=== PATIENT | male | born 1955 | race Hispanic/Latino ===

== ENCOUNTER 2022-11-06 23:04 | Emergency (ER) | payer OTHER ==
[~2022-11-06] VITALS: Ht 170.2 cm; Wt 112.5 kg
[2022-11-07] MEDS ORDERED: METOCLOPRAMIDE 10 MG/2 ML VIAL IVP ONE
[2022-11-07] MEDS ORDERED: LABETALOL 20MG VIAL IV ONE
[2022-11-07] MEDS ORDERED: MORPHINE 2 MG SYG IVP ONE
[2022-11-07 00:18] LABS: HEMATOCRIT 40.8 % (42-54); LYMPHOCYTES % (AUTO) 16.1 % (21.0-51.0); MEAN CORPUSCULAR HGB CONC 32.1 g/dL (32.0-36.0); MEAN CORPUSCULAR VOLUME 77.9 fL (79-99); MONOCYTES % (AUTO) 9.1 % (3.0-13.0); NEUTROPHILS % (AUTO) 71.9 % (40.0-77.0); PLATELET COUNT (AUTO) 241 K/uL (130-400); RED BLOOD CELL COUNT(AUTO) 5.24 MIL/uL (4.50-6.20); RED CELL DISTRIBUTION WIDTH 14.3 % (11.0-15.5); WHITE BLOOD COUNT (AUTO) 8.1 K/uL (4.8-10.8)
[2022-11-07 00:19] LABS: BASOPHILS % (AUTO) 0.5 % (0.0-5.0); EOSINOPHILS % (AUTO) 1.8 % (0.0-8.0)
[2022-11-07 00:28] LABS: CREATININE 0.8 mg/dL (0.5-1.5); POTASSIUM 3.6 mmol/L (3.5-5.1)
[2022-11-07 00:29] LABS: INR 0.98 (0.85-1.15); PROTHROMBIN TIME 10.7 SEC (9.6-11.6)
[2022-11-07 00:30] LABS: PARTIAL THROMBOPLASTIN TIME 25.1 SEC (26.3-35.5)
[2022-11-07 00:32] LABS: ALBUMIN 3.7 g/dL (3.5-5.0); TOTAL PROTEIN, SERUM 7.7 g/dL (6.0-8.3)
[2022-11-07 00:38] LABS: APPEARANCE,URINE CLEAR (CLEAR); BILIRUBIN,URINE NEGATIVE (NEGATIVE); COLOR,URINE LIGHT-YELLOW (YELLOW); GLUCOSE, URINE (UA) NEGATIVE (NEGATIVE); KETONES,URINE NEGATIVE (NEGATIVE); LEUKOCYTE ESTERASE ,URINE NEGATIVE Leu/uL (NEGATIVE); NITRATE,URINE NEGATIVE (NEGATIVE); OCCULT BLOOD,URINE NEGATIVE (NEGATIVE); PROTEIN,URINE 30 mg/dL (NEGATIVE); UROBILINOGEN,URINE 0.2 mg/dL (0.2-1.0)
[2022-11-07 00:41] LABS: MUCUS,URINE RARE LPF (None Seen); RBC,URINE 0-1 /HPF (0-1); WBC,URINE 0-1 /HPF (0-1)
[2022-11-07 01:54] VITALS: BP 137/79
== END 2022-11-07 02:05 | disposition home or self-care (01) ==
LOC: EDH 23:04
DX: G44.209 Tension-type headache, unspecified, not intractable (principal); I16.0 Hypertensive urgency; I10 Essential (primary) hypertension; K21.9 Gastro-esophageal reflux disease without esophagitis; E11.9 Type 2 diabetes mellitus without complications
CPT/HCPCS: 99285; 96374; 70450; 71045; 96375; 82550; 84484; 80053; 85025; 85610; 85730; 82948; 81001; 36415; 93005; J2270; J3490; J2765

== ENCOUNTER 2022-11-09 07:53 | Observation (INO) | payer OTHER ==
[~2022-11-09] VITALS: Ht 170.2 cm; Wt 112.6 kg
[2022-11-09] MEDS ORDERED: LORAZEPAM 0.5 MG TABLET PO ONE (08:30)
[2022-11-09 08:31] LABS: BASOPHILS % (AUTO) 0.5 % (0.0-5.0); EOSINOPHILS % (AUTO) 1.4 % (0.0-8.0); HEMATOCRIT 42.8 % (42-54); LYMPHOCYTES % (AUTO) 15.5 % (21.0-51.0); MEAN CORPUSCULAR HEMOGLOBIN 25.2 pg (27.0-33.0); MEAN CORPUSCULAR VOLUME 78.7 fL (79-99); MONOCYTES % (AUTO) 9.6 % (3.0-13.0); NEUTROPHILS % (AUTO) 72.5 % (40.0-77.0); PLATELET COUNT (AUTO) 251 K/uL (130-400); RED BLOOD CELL COUNT(AUTO) 5.44 MIL/uL (4.50-6.20); RED CELL DISTRIBUTION WIDTH 14.8 % (11.0-15.5); WHITE BLOOD COUNT (AUTO) 7.9 K/uL (4.8-10.8)
[2022-11-09 08:39] LABS: CREATININE 0.9 mg/dL (0.5-1.5); POTASSIUM 4.4 mmol/L (3.5-5.1)
[2022-11-09 08:44] LABS: TOTAL PROTEIN, SERUM 8.1 g/dL (6.0-8.3)
[2022-11-09 08:55] LABS: B-TYPE NATRIURETIC PEPTIDE < 5 pg/mL (0-100)
[2022-11-09] MEDS ORDERED: ASPIRIN 325MG EC TAB PO ONE (09:30)
[2022-11-09 09:37] LABS: THYROID STIMULATING HORMONE 1.74 uIU/mL (0.36-3.74)
[2022-11-09] MEDS ORDERED: ONDANSETRON ODT 4MG TAB SL PRN (10:30)
[2022-11-09] MEDS ORDERED: BENA-8 PO (10:43)
[2022-11-09] MEDS ORDERED: BUSP5TAB3 PO (10:43)
[2022-11-09] MEDS ORDERED: METF-444 PO (10:43)
[2022-11-09] MEDS ORDERED: AMLO-257 PO (10:43)
[2022-11-09] MEDS ORDERED: ESOM40VI2 IV (10:43)
[2022-11-09] MEDS: ACETAMINOPHEN 325 MG TAB PO PRN ×2 (11:37→20:03)
[2022-11-09] MEDS ORDERED: ATORVASTATIN 40 MG TABLET PO SCH (21:00)
[2022-11-09 22:45] VITALS: BP 153/70
[2022-11-09] MEDS ORDERED: OXYM15SP NS (23:24)
[2022-11-10 03:48] LABS: HEMATOCRIT 41.5 % (42-54); MEAN CORPUSCULAR HEMOGLOBIN 25.4 pg (27.0-33.0); MEAN CORPUSCULAR HGB CONC 32.3 g/dL (32.0-36.0); MEAN CORPUSCULAR VOLUME 78.7 fL (79-99); RED BLOOD CELL COUNT(AUTO) 5.27 MIL/uL (4.50-6.20); RED CELL DISTRIBUTION WIDTH 14.7 % (11.0-15.5); WHITE BLOOD COUNT (AUTO) 9.3 K/uL (4.8-10.8)
[2022-11-10 03:57] VITALS: BP 141/80
[2022-11-10 03:57] LABS: HEMOGLOBIN A1C 8.8 % (4.0-6.0)
[2022-11-10 04:09] LABS: ALBUMIN 3.6 g/dL (3.5-5.0); CREATININE 0.7 mg/dL (0.5-1.5); MAGNESIUM 1.8 mg/dL (1.80-2.40); POTASSIUM 3.9 mmol/L (3.5-5.1); TOTAL PROTEIN, SERUM 7.7 g/dL (6.0-8.3)
[2022-11-10] MEDS: INSULIN HUMULIN R 100 UNIT/ML 3ML SQ SCH ×3 (06:50→15:57)
[2022-11-10 08:00] VITALS: BP 153/82
[2022-11-10] MEDS ORDERED: ENOXAPARIN SODIUM 30 MG/0.3 ML SQ SCH (09:00)
[2022-11-10] MEDS ORDERED: ASPIRIN 81MG CHEW TAB PO SCH (09:00)
[2022-11-10 12:00] VITALS: BP 153/92
[2022-11-10] MEDS: ACETAMINOPHEN 325 MG TAB PO PRN (14:17)
[2022-11-10 16:00] VITALS: BP 151/79
== END 2022-11-10 18:00 | disposition home or self-care (01) ==
LOC: EDH 07:53 → EDHIP 09:29 → INTOOBSV 09:29 → 3CH 22:03
PROVIDERS: ADMIT Internal Medicine Infectious Disease; ATTEND Internal Medicine Infectious Disease
DX: I10 Essential (primary) hypertension (principal); E11.9 Type 2 diabetes mellitus without complications; F41.9 Anxiety disorder, unspecified; F32.A Depression, unspecified; E66.01 Morbid (severe) obesity due to excess calories; G45.9 Transient cerebral ischemic attack, unspecified; G44.209 Tension-type headache, unspecified, not intractable; H53.129 Transient visual loss, unspecified eye; H54.61 Unqualified visual loss, right eye, normal vision left eye; H54.1131 Blindness right eye category 3, low vision left eye category 1; H54.10 Blindness, one eye, low vision other eye, unspecified eyes; Z79.899 Other long term (current) drug therapy; Z98.890 Other specified postprocedural states; Z68.38 Body mass index [BMI] 38.0-38.9, adult
CPT/HCPCS: 99285; 93306; 93880; 70551; 71045; 80061; 84443; 84484; 80053 ×2; 83880; 85025; 82948 ×4; 36415 ×2; 93005; 96372; 83036; 83735; 85027; G0378; J1650

== ENCOUNTER 2024-09-26 19:37 | Emergency (ER) | payer OTHER ==
[~2024-09-26] VITALS: Ht 170.2 cm; Wt 98.9 kg
[~2024-09-26 19:37] MED LIST: AMLO-257 PO; BENA-8 PO; BUSP5TAB3 PO; ESOM40VI2 IV; METF-444 PO; OXYM15SP NS
[2024-09-26] MEDS: ORPHENADRINE 60MG/2ML IM ONE (20:16)
[2024-09-26] MEDS: ketOROlac 15MG/ML VIAL (15MG/ML) IM ONE (20:17)
[2024-09-26] MEDS: cloNIDine HCL 0.1 MG TABLET PO ONE (20:29)
--- NOTE | 2024-09-26 20:34 | HMCIMG ---
INDICATION: pain TECHNIQUE: CHEST 1VW COMPARISON: 11/09/2022 FINDINGS AND IMPRESSION: No acute consolidation or pleural effusion. Cardiac silhouette is within normal limits. Mild degenerative changes of the spine. The visualized upper abdomen appears unremarkable.
--- NOTE | 2024-09-26 20:35 | HMCIMG ---
SHOULDER COMP 2+VWS LT INDICATION: pain TECHNIQUE: SHOULDER COMP 2+VWS LT. FINDINGS AND IMPRESSION: No displaced fracture or dislocation is seen. Correlate clinically. There is mild soft tissue swelling No radiopaque foreign body is identified.
--- NOTE | 2024-09-26 21:28 | ERN ---
General Chief Complaint: Shoulder Injury/Pain Stated Complaint: LEFT SHOULDER PAIN Time Seen by MD: 19:46 Time Seen by Midlevel: 19:46 Source: patient History of Present Illness Initial Comments The patient is a 69-year-old male with a past medical history of type 2 diabetes, hypertension, anxiety, and depression presenting to the emergency department with left shoulder pain that radiates to the left side of his neck and the left side of his back. The pain started on September 20, 2024. Patient was unsure if he slept wrong or if this is due to him mowing the lawn with a push sole sewer hand. He rates the pain four out of 10. Denies any other symptoms. He specifically denies any shortness of breath or cough. He was seen by primary care doctor and was given muscle relaxants with little to no relief. Allergies: Coded Allergies: No Known Drug Allergies (Unverified Allergy, Unknown, 11/06/22) Home Meds Reported Medications Oxymetazoline HCl (12 Hour Nasal Relief) 15 Ml Denbo, 15 ML NS BID PRN for NASAL CONGESTION, SPRAY 11/09/22 Amlodipine Besylate (Amlodipine Besylate) 5 Mg Tablet, 5 MG PO BID, TAB 11/09/22 Metformin HCl (Metformin HCl) 500 Mg Tablet, 500 MG PO DAILY, TAB 11/09/22 Benazepril HCl (Benazepril HCl) 20 Mg Tablet, 20 MG PO BID, TAB 11/09/22 Esomeprazole Sodium (Esomeprazole Sodium) 40 Mg Vial, 40 MG IV DAILY, VIAL 11/09/22 Buspirone HCl (Buspirone HCl) 5 Mg Tablet, 5 MG PO BID, TAB 11/09/22 Past Medical History Past Medical History: Anxiety, Depression, Diabetes-Type II, Hypertension Past Surgical History: Other Surgical History Other: RECTAL FISTULA Social History Social History: Negative, Lives with family ROS Dictation CONSTITUTIONAL: Negative except for HPI HEAD/FACE: Negative except for HPI EENT: Negative except for HPI RESPIRATORY: Negative except for HPI GASTROINTESTINAL/ABDOMINAL: Negative except for HPI GENITOURINARY: Negative except for HPI MUSCULOSKELETAL: Negative except for HPI INTEGUMENTARY: Negative except for HPI NEUROLOGICAL/PSYCH: Negative except for HPI HEMATOLOGIC/LYMPHATIC: Negative except for HPI All Systems Negative, Except as noted above. 13 point review of systems assessed and all negative except for above. Physical Exam Physical Exam Dictation Vital Signs reviewed General Appearance: Alert, oriented x 3, no acute distress, well developed, nourished. Head and Face: non-traumatic. Eyes: PERRL, pink conjunctivas, eyelid no trauma, anterior chamber with arcus senilis. Ears: Pinnas intact and no signs of trauma or erythema ear canals clear and no discharge TM no erythema Nose: No discharge, no bleeding. Oropharynx: Mouth normal, tongue pink, pharynx clear,no erythema, tonsils no exudates, no abscesses noted, mucous membrane moist Neck: Supple, non-tender, no thyromegaly, no masses, no JVD, no bruits Breast:Deferred Chest:No tenderness, no crepitus, no paradoxical movement, no retractions Lungs:Clear, well-ventilated, symmetric, no rales, no wheezing, no rhonchi, no stridor, good breath sounds bilaterally Heart: Regular rate, regular rhythm, no murmur, no gallops Vascular: no peripheral edema, Abdomen: Soft, positive bowel sounds, nondistended, no guarding, nontender, no rebound, no masses no hepatomegaly, no splenomegaly, no Mustafa's sign, no hernias. Rectal: Deferred Genital: Deferred Neurological: Normal speech, motor function intact, sensory function intact Musculoskeletal: Neck nontender, full range of motion, back nontender, full range of motion, Extremities: nontender, full range of motion Skin: Color pink, dry, no turgor, no rash, no lacerations, no abrasions, no contusions. Lymphatic: Deferred MDM MDM: The patient is a 69-year-old male with a past medical history of type 2 diabetes, hypertension, anxiety, and depression presenting to the emergency department with left shoulder pain that radiates to the left side of his neck and the left side of his back. The pain started on September 20, 2024. Patient was unsure if he slept wrong or if this is due to him mowing the lawn with a push sole sewer hand. He rates the pain four out of 10. Denies any other symptoms. He specifically denies any shortness of breath or cough. He was seen by primary care doctor and was given muscle relaxants with little to no relief. Initial vital signs are remarkable for an elevated blood pressure of 182/96. Heart rate is 77 beats per minute. Temperature is 98.2. On physical examination the patient was in no acute respiratory distress. He was full range motion of the left shoulder however on palpation of the left scapula the patient was reproducible pain and tenderness. It appears his pain is musculoskeletal in nature. However, an EKG was obtained which reveals normal sinus rhythm with a ventricular rate of 60 beats per minute, no ST elevations, no bundle branch blocks. Chest x-ray was obtained which reveals no acute cardiopulmonary process. His left shoulder x-ray shows no acute fracture or dislocation. On arrival his blood pressure was slightly elevated. 0.1 mg of clonidine was administered. Patient was observed for approximately 30 minutes in his blood pressure improved to 150 systolic. Patient states his pain has improved. He was an appointment with his primary care doctor tomorrow. The patient was stable for discharge with close return precautions. Differential diagnosis: Musculoskeletal pain, ACS, contusion, fracture, dislocation shoulder strain There are no social concerns with this patient. Prescription drug management Prescriptions will include: None Medical management and examination interpretation discussions were had by me with other qualified healthcare professionals as indicated for the patient's care. ED Course Orders Procedure Category Date Status Time Shoulder Comp 2+Vws Lt RAD 09/26/24 Resulted 19:52 Orphenadrine Citrate PHA 09/26/24 Complete (Norflex) 20:00 12 Lead Ekg Tracing- EKG 09/26/24 Logged Technical 19:52 Chest 1vw RAD 09/26/24 Resulted 19:52 Ketorolac PHA 09/26/24 Complete Tromethamine 15mg/Ml 20:00 Clonidine Hcl 0.1 Mg PHA 09/26/24 Complete Tablet (Catapres 0. 20:30 Current Medications Medications (Trade) Dose Ordered Sig/Peter Route PRN Reason Start Time Stop Time Status Last Admin Dose Admin Clonidine HCl (CATApres 0.1 mg TAB) 0.1 mg ONCE ONCE PO 09/26/24 20:30 09/26/24 20:31 DC 09/26/24 20:29 Ketorolac Tromethamine (toRADol) 15 mg ONCE ONCE IM 09/26/24 20:00 09/26/24 20:01 DC 09/26/24 20:17 Orphenadrine Citrate (Norflex) 60 mg ONCE ONCE IM 09/26/24 20:00 09/26/24 20:01 DC 09/26/24 20:16 Vital Signs Date Time Temp Pulse Resp B/P (MAP) Pulse Ox O2 Delivery O2 Flow Rate FiO2 09/26/24 21:07 98.1 61 18 161/76 98 Room Air* 0 21 09/26/24 20:29 65 185/94 09/26/24 19:53 98.1 80 18 175/85 96 Room Air* 0 21 09/26/24 19:39 98.2 77 20 182/96 99 Room Air [place] [address] [id number] IMAGING REPORT Signed PATIENT: HOMERO LILLY MR#: [id number] : 1955 SEX: M AGE: 69 LOCATION: [facility] ORDER 53 STATUS: REG ER REPORT#: [id number] SERVICE 51 REASON: pain ORDERING PHYSICIAN: CODY LILLY PROCEDURE: SHOL 2V LT - SHOULDER COMP 2+VWS LT SHOULDER COMP 2+VWS LT INDICATION: pain TECHNIQUE: SHOULDER COMP 2+VWS LT. FINDINGS AND IMPRESSION: No displaced fracture or dislocation is seen. Correlate clinically. There is mild soft tissue swelling No radiopaque foreign body is identified. DICTATED BY: WILLIAM MELARA MD DATE: 09/26/242030 ELECTRONICALLY SIGNED BY: WILLIAM MELARA MD DATE: 09/26/242034 [address] [id number] IMAGING REPORT Signed PATIENT: HOMERO LILLY MR#: [id number] : 1955 SEX: M AGE: 69 LOCATION: [facility] ORDER 53 STATUS: REG ER [facility] REPORT#: [id number] SERVICE 51 REASON: pain ORDERING PHYSICIAN: CODY LILLY PROCEDURE: CXR1VW - CHEST 1VW INDICATION: pain TECHNIQUE: CHEST 1VW COMPARISON: 11/09/2022 FINDINGS AND IMPRESSION: No acute consolidation or pleural effusion. Cardiac silhouette is within normal limits. Mild degenerative changes of the spine. The visualized upper abdomen appears unremarkable. DICTATED BY: WILLIAM MELARA MD DATE: 09/26/242030 ELECTRONICALLY SIGNED BY: WILLIAM MELARA MD DATE: 09/26/242033 DX & DISP Disposition: Discharge Departure Impression: Primary Impression: Musculoskeletal pain Additional Impression: Elevated blood pressure reading Condition: Stable Referrals: NYA MOLINA MD (PCP) Time of Disposition: 21:22 I have reviewed the case, and I agree with, Diagnosis and Plan I performed the substantive portion of the visit. I have reviewed and personally made and approve the management plan that is documented in the note by myself or the ABDULAZIZ. I acknowledge for responsibility for the patient's management plan. CODY LILLY Sep 26, 2024 21:28
[2024-09-26 21:38] VITALS: BP 151/78; PULSE 61; RESP 18; TEMP 97.8; O2SAT 96
--- NOTE | 2024-09-27 02:09 | EKG ---
[facility] Test Date: 2024-09-26 Test Time: 20:08:16 Pat Name: HOMERO LILLY Department: ED Room: Gender: M Head Of Mobile: [id number] : 1955 Requested By: CODY LILLY Order Number: [id number] Reading MD: Carl Morris Measurements Intervals [place] Rate: 60 P: 22 [place]: 156 QRS: -22 QRSD: 94 T: 3 QT: 398 QTc: 398 Interpretive Statements Sinus rhythm Left ventricular hypertrophy Compared to ECG 11/09/2022 08:08:57 No significant changes Electronically Signed On 09-28-2024 13:34:56 CDT by Carl Morris Please click the below link to view image of tracing.
== END 2024-09-26 21:37 | disposition home or self-care (01) ==
LOC: EDH 19:37
DX: M25.511 Pain in right shoulder (principal); I10 Essential (primary) hypertension; E11.9 Type 2 diabetes mellitus without complications; F41.9 Anxiety disorder, unspecified; Z79.84 Long term (current) use of oral hypoglycemic drugs; Z79.899 Other long term (current) drug therapy; Z98.890 Other specified postprocedural states
CPT/HCPCS: 99285; 71045; 73030; 96372 ×2; 93005; J1885; J2360

== ENCOUNTER → 2024-10-21 | Outpatient (CLI) | payer OTHER ==
--- NOTE | 2024-10-21 16:12 | HMCIMG ---
MR BRAIN WO CON HISTORY: Headache COMPARISON: 11/09/2022 TECHNIQUE: MRI of the brain was performed utilizing multiple pulse sequences in axial, coronal and sagittal planes. Patient was not given contrast through intravenous route. FINDINGS: The ventricles and extraventricular CSF spaces are dilated consistent with cerebral atrophy. Nonspecific white matter changes are seen. There is no midline shift, mass effect or herniation. No subacute hemorrhage is seen. No MR evidence of acute infarct is seen in the diffusion weighted images. Cerebellar tonsils are in normal position. No evidence of mucoperiosteal thickening is seen of the visualized paranasal sinuses. No MR evidence of a mass lesion is seen in this noncontrast study. IMPRESSION: 1. No MR evidence of acute infarct is seen in the diffusion weighted images. Atrophy and White matter changes.
== END | disposition home or self-care (01) ==
LOC: RAH 14:44
PROVIDERS: ATTEND Internal Medicine
DX: G31.9 Degenerative disease of nervous system, unspecified (principal); G44.009 Cluster headache syndrome, unspecified, not intractable; G93.89 Other specified disorders of brain; R90.82 White matter disease, unspecified
CPT/HCPCS: 70551

== ENCOUNTER 2025-02-18 09:52 | Emergency (ER) | payer OTHER ==
[~2025-02-18] VITALS: Ht 170.2 cm; Wt 95.3 kg
--- NOTE | 2025-02-18 10:54 | HMCIMG ---
SHOULDER COMP 2+VWS RT REASON: injury TECHNIQUE: 2 views were obtained. FINDINGS: There is subcortical dictation of the right shoulder joint with no associated fracture.. There is no joint effusion. The soft tissues appear unremarkable. There is no evidence of a radiopaque foreign body. AC joint appears to be normal. IMPRESSION: No acute fracture. Subcoracoid dislocation of the right humeral head
--- NOTE | 2025-02-18 10:55 | NUR ---
pt moved from fast track into er room 16 report given to natan currie
--- NOTE | 2025-02-18 11:04 | HMCIMG ---
Exam: NONCONTRAST CT BRAIN REASON: injury. COMPARISON: None. TECHNIQUE: Images are obtained from vertex to the skull base. The exam was performed without IV contrast. FINDINGS: There is normal appearing brain parenchyma. There are no focal mass lesions. There is is no evidence of intracranial hemorrhage or acute stroke. Ventricles and sulci appear normal. Posterior fossa and brainstem structures are unremarkable. Paranasal sinuses and remaining extracranial soft tissues appear normal as well.There is mild global atrophy. IMPRESSION: 1. No acute intracranial process. CT was performed with one or more following dose reduction techniques: automated exposure control, adjustment of the mA and kv according to patient's size, or use of a iterative reconstruction technique.
--- NOTE | 2025-02-18 12:03 | NUR ---
UNIVERSAL SHOULDER IMMBOLIZER APPLIED TO RIGHT SHOULDER PT TOLERATED IT WELL
--- NOTE | 2025-02-18 12:14 | HMCIMG ---
SHOULDER COMP 2+VWS RT REASON: POST REDUCTION TECHNIQUE: 2 views were obtained. FINDINGS: There is no evidence of fracture or dislocation. Postreduction shoulder demonstrate the right shoulder to be anatomical position. There is no joint effusion. The soft tissues appear unremarkable. There is no evidence of a radiopaque foreign body. IMPRESSION: Postreduction shoulder demonstrate the right glenohumeral joint to be in anatomical position. There is no associated fracture.
--- NOTE | 2025-02-18 12:47 | ERN ---
ED Note History of Present Illness Stated Complaint: FALL Chief Complaint: Mechanical Fall Time Seen by MD: 10:04 Dictation: 69-year-old male mechanical fall while at Clinic fell onto his right shoulder unable to move it now and also hit his face with a small abrasion around the right eye Allergies: Coded Allergies: No Known Drug Allergies (Unverified Allergy, Unknown, 11/06/22) Home Meds Reported Medications Oxymetazoline HCl (12 Hour Nasal Relief) 15 Ml Remlap, 15 ML NS BID PRN for NASAL CONGESTION, SPRAY 11/09/22 Amlodipine Besylate (Amlodipine Besylate) 5 Mg Tablet, 5 MG PO BID, TAB 11/09/22 Metformin HCl (Metformin HCl) 500 Mg Tablet, 500 MG PO DAILY, TAB 11/09/22 Benazepril HCl (Benazepril HCl) 20 Mg Tablet, 20 MG PO BID, TAB 11/09/22 Esomeprazole Sodium (Esomeprazole Sodium) 40 Mg Vial, 40 MG IV DAILY, VIAL 11/09/22 Buspirone HCl (Buspirone HCl) 5 Mg Tablet, 5 MG PO BID, TAB 11/09/22 Past Medical History Past Medical History: Anxiety, Depression, Diabetes-Type II, Hypertension Surgical History: Other Surgical History Other: RECTAL FISTULA Social History: Negative, Lives with family Review of System Dictation Constitutional: Negative for fever,chills, and weight loss Eyes: Negative for injury, pain,redness, and discharge ENT: Negative for injury,pain or swelling Cardiovascular: Negative for chest pain, palpitations, and edema Respiratory: Negative for shortness of breath, cough, and wheezing, Abdomen/GI: Negative for abdominal pain, nausea, vomiting, diarrhea, and constipation Back: Negative for injury and pain : Negative for injury, bleeding and discharge MS/Extremity: Per HPI Skin: Negative for rash, and discoloration Neuro: Negative for headache, weakness, numbness, tingling, and seizure Psych: Negative for suicide ideation, homicidal ideation, and hallucinations Initial Vital Sign VS Vital Signs Date Time Temp Pulse Resp B/P (MAP) Pulse Ox O2 Delivery O2 Flow Rate FiO2 02/18/25 09:54 98.1 85 20 158/75 98 Room Air 0 02/18/25 10:45 21 Physical Exam Dictation General: awake, alert, NAD Head/Face: Normocephalic, small abrasion to right side of face periorbital area Eyes: PERRL, EOMI, vision at baseline ENT: oral cavity clear, TMs clear, no signs of infection Neck: Trachea midline, supple, no nuchal rigidity Cardiovascular: RRR, normal S1/S2, No MRGs, no JVD Respiratory: CTAB, no respiratory distress, No rales or wheezes Abdomen: Soft, non-tender, non-distended, normal bowel sounds, no guarding or rebound. Skin: Warm, dry, normal turgor, no rash MS/Extremity: Pulses equal, no cyanosis, neurovascular intact, right shoulder deformity unable to arrange close Neuro: COAx4, GCS 15, strength 5/5, CN 2-12 intact, normal cerebellar exam, normal gait, Psych: Normal behavior, mood, and affect normal ED Course ED Course Orders Procedure Category Date Status Time Shoulder Comp 2+Vws Rt RAD 02/18/25 Resulted 10:16 Ct Head/Brain W/O CT 02/18/25 Resulted Contrast 10:16 Propofol 20ml Vial PHA 02/18/25 Complete (Diprivan 20ml Vial) 11:30 Shoulder Comp 2+Vws Rt RAD 02/18/25 Resulted 11:25 Shoulder Immobilizer CHARLIE 02/18/25 In Process 12:03 Current Medications Medications (Trade) Dose Ordered Sig/Peter Route PRN Reason Start Time Stop Time Status Last Admin Dose Admin Propofol (DIPRivan 20ML VIAL) 100 mg ONCE ONCE IV 02/18/25 11:30 02/18/25 11:31 DC 02/18/25 12:08 Vital Signs Date Time Temp Pulse Resp B/P (MAP) Pulse Ox O2 Delivery O2 Flow Rate FiO2 02/18/25 10:45 98.1 88 20 155/66 98 Room Air* 0 21 02/18/25 09:54 98.1 85 20 158/75 98 Room Air 0 Medical Decision Making MDM MDM: Differential diagnosis: Rationale: Tests considered and ordered secondary to shared decision making include: Previous outside records reviewed: Old ER visits. Risk of complication and/or morbidity or mortality of patient management: None Medications-Per medication reconciliation Need for hospitalization: Patient does not meet criteria for hospitalization. Need for emergency major/minor surgery: No There are no social concerns with this patient. Prescription drug management Prescriptions will include symptomatic care Patient's prior external medical records from other ER visits were reviewed by me as indicated. Prior testing and results from previous visits were reviewed. Prior tests were taken into account with medical decision making and resource utilization, independent historian/historians were used to obtain complete medic al history. I independently interpreted the test that were performed, results were reviewed by me and considered findings on radiology if ordered. Medical management and examination interpretation discussions were had by me with other qualified healthcare professionals as indicated for the patient's care. 69-year-old male with ground level fall CT of the head negative, laceration not requiring sutures, right shoulder dislocation was reduced with moderate sedation observed and stable for discharge now. Procedure Joint Reduction Site: shoulder (R) Conscious Sedation: Yes Reduction Attempts: 1 Pre-Procedure NV Exam: Yes Post-Procedure NV Exam: Yes post joint reduction film: joint reduced Progress Moderate sedation note 33 total minute procedure time pre and post observation, ASA classification of two, given 100 mg of propofol and then 2nd dose of 20 mg to get RASS of negative two, joint was reduced, patient recovered well was on CO2 monitor with nurse and respiratory therapist at the bedside. DX & DISP Disposition: Discharge Departure Impression: Primary Impression: Head injury Additional Impression: Dislocation of right shoulder joint Condition: Stable Referrals: NYA MOLINA MD (PCP) DOUGLAS KOHLI MD Feb 18, 2025 12:47
[2025-02-18 13:25] VITALS: BP 140/69; PULSE 85; RESP 20; TEMP 98.2; O2SAT 98
== END 2025-02-18 13:35 | disposition home or self-care (01) ==
LOC: EDH 09:52
DX: S43.004A Unspecified dislocation of right shoulder joint, initial encounter (principal); S00.81XA Abrasion of other part of head, initial encounter; E11.9 Type 2 diabetes mellitus without complications; F41.9 Anxiety disorder, unspecified; I10 Essential (primary) hypertension; Z79.84 Long term (current) use of oral hypoglycemic drugs; Z79.899 Other long term (current) drug therapy; W18.39XA Other fall on same level, initial encounter; Y93.89 Activity, other specified; Y92.89 Other specified places as the place of occurrence of the external cause; Y99.8 Other external cause status
CPT/HCPCS: 99285; 23650; 70450; 99152; 99153; 73030 ×2; J2704; 99151; G0500; J3490

== ENCOUNTER → 2025-03-03 | Outpatient (CLI) | payer OTHER ==
--- NOTE | 2025-03-04 12:00 | HMCIMG ---
EXAM: CT Right Shoulder, without IV contrast. CLINICAL HISTORY: Pain in the right shoulder. TECHNIQUE: Axial images were acquired through the right shoulder without IV contrast. Reformatted images were reviewed. COMPARISON: CR ??? Shoulder Comp 2+Vws Right ??? 02/18/25, 11:33 EDT FINDINGS: BONES: No acute fracture or aggressive-appearing osseous lesion. Degenerative osseous changes with subtle marginal sclerosis. JOINTS: Mild narrowing of the glenohumeral joint space. No dislocation. SOFT TISSUES: The soft tissues are unremarkable. IMPRESSION: Degenerative changes of the glenohumeral joint with subtle marginal sclerosis and mild joint space narrowing. No acute osseous abnormality. No dislocation. Correlate with orthopedic evaluation. /[place]
== END | disposition home or self-care (01) ==
LOC: RAH 12:37 → EEVIPCON 13:00
PROVIDERS: ATTEND Internal Medicine
DX: M19.011 Primary osteoarthritis, right shoulder (principal); M25.811 Other specified joint disorders, right shoulder; M25.511 Pain in right shoulder
CPT/HCPCS: 73200

== ENCOUNTER → 2025-06-01 | Outpatient (CLI) | payer OTHER ==
[~2025-06-01] MED LIST changes: +ESOM40VI IV; -ESOM40VI2 IV
--- NOTE | 2025-06-02 00:05 | HMCIMG ---
EXAMINATION: MRI of the Right Shoulder Without Contrast CLINICAL HISTORY: Other specified arthropathies, not elsewhere classified, right shoulder. TECHNIQUE: Multiplanar MRI sequences of the right shoulder were obtained without intravenous contrast. COMPARISON: Prior CT scan of the right shoulder dated March 03, 2025. FINDINGS: Rotator Cuff Tendons: The supraspinatus tendon demonstrates a full-thickness tear with 4 cm medial retraction, Patte stage II retraction, and Goutallier grade 2 fatty atrophy of the muscle belly. The subscapularis tendon shows a full-thickness tear involving the biceps anchoring fibers, with medial dislocation of the biceps tendon from the bicipital groove. The infraspinatus tendon exhibits intrasubstance edema and thickening, consistent with tendinosis. Biceps Tendon and Bursa: The biceps tendon demonstrates tendinosis with mild bursal effusion. Subacromialsubdeltoid bursal effusion is also present. Labrum: The glenoid labrum appears unremarkable. Acromioclavicular Joint: Marginal osteophytes, synovial hypertrophy, and capsular thickening are present, consistent with osteoarthritis. Minimal pseudoacetabularization of the acromion is noted, corresponding to Hamada grade 2 rotator cuff arthropathy. There is severe narrowing of the subacromial space with superior migration of the humeral head. Glenohumeral Ligaments: The superior and middle glenohumeral ligaments, as well as the anterior and posterior bands of the inferior glenohumeral ligament, are thickened, consistent with adhesive capsulitis. Crowding of the rotator cuff interval is present. Osseous Structures: The humeral head demonstrates superior subluxation with an acromiohumeral distance measuring 4 mm. Soft Tissues: No additional abnormalities are seen in the surrounding soft tissues. IMPRESSION: * Full-thickness supraspinatus tendon tear with 4 cm medial retraction, Patte stage II, and Goutallier grade 2 fatty atrophy. * Full-thickness subscapularis tendon tear involving the biceps anchor, consistent with Lafosse type IV, with medial dislocation of the biceps tendon. * Moderate rotator cuff arthropathy, Hamada grade 2, with superior humeral head subluxation and severe reduction of the acromiohumeral interval (4 mm). * Biceps tendon tendinosis with mild bursal effusion and infraspinatus tendinosis. * Osteoarthritis of the acromioclavicular joint with marginal osteophytes and capsular thickening. * Adhesive capsulitis suggested by thickened glenohumeral ligaments and crowding of the rotator cuff interval. * Degenerative changes in the acromioclavicular joint and rotator cuff arthropathy are stable compared with prior CT dated March 03, 2025. /[place]
== END | disposition home or self-care (01) ==
LOC: RAH 08:10
PROVIDERS: ATTEND Student in an Organized Health Care Education/Training Program
DX: M75.121 Complete rotator cuff tear or rupture of right shoulder, not specified as traumatic (principal); M19.011 Primary osteoarthritis, right shoulder; M25.711 Osteophyte, right shoulder; M67.813 Other specified disorders of tendon, right shoulder
CPT/HCPCS: 73221